=== PATIENT | female | born 1990 | race American Indian/Alaskan Native ===

== ENCOUNTER 2016-12-30 14:39 | Emergency (ER) | payer MEDICAID ==
[2016-12-30 14:44] VITALS: BMI 19.8
[2016-12-30 14:47] VITALS: BP 116/74; PULSE 81; RESP 16; TEMP 98.2; O2SAT 100
== END 2016-12-30 15:15 | disposition left against medical advice (07) ==
LOC: ED 14:39
DX: Z02.89 Encounter for other administrative examinations (principal); K08.89 Other specified disorders of teeth and supporting structures